=== PATIENT | female | born 1990 | race Two or more races ===

== ENCOUNTER 2017-02-11 14:10 | Emergency (ER) | payer OTHER ==
[~2017-02-11] VITALS: Ht 172.7 cm; Wt 65.8 kg
== END 2017-02-11 17:21 | disposition home or self-care (01) ==
LOC: ER 14:10
DX: S20.222A Contusion of left back wall of thorax, initial encounter (principal); S20.221A Contusion of right back wall of thorax, initial encounter; V49.9XXA Car occupant (driver) (passenger) injured in unspecified traffic accident, initial encounter; Y93.89 Activity, other specified; Y92.488 Other paved roadways as the place of occurrence of the external cause; Y99.8 Other external cause status

== ENCOUNTER 2017-06-06 23:53 | Inpatient (IN) | payer OTHER ==
[~2017-06-06] VITALS: Ht 170.2 cm; Wt 74.8 kg
[2017-06-07] MEDS ORDERED: DICY20TA (00:47)
== END 2017-06-15 17:14 | disposition home or self-care (01) | DRG 419 ==
LOC: ER 23:53 → MEDI 06-07 10:28 → SEC-K 06-07 10:28 → MEDI 06-07 16:31
PROVIDERS: Surgery
PROC: BW40ZZZ Ultrasonography of Abdomen (ICD-10-PCS; 2017-06-07)
PROC: BF37ZZZ Magnetic Resonance Imaging (MRI) of Pancreas (ICD-10-PCS; 2017-06-07)
PROC: 0FT44ZZ Resection of Gallbladder, Percutaneous Endoscopic Approach (ICD-10-PCS; principal; 2017-06-10 13:00)
PROC: BF37ZZZ Magnetic Resonance Imaging (MRI) of Pancreas (ICD-10-PCS; 2017-06-11)
DX: K80.00 Calculus of gallbladder with acute cholecystitis without obstruction (principal)